=== PATIENT | female | born 1990 | race Asian ===

== ENCOUNTER 2020-06-18 19:56 | Emergency (ER) | payer BC, SELFPAY ==
[~2020-06-18] VITALS: Ht 165.1 cm; Wt 59.0 kg
[2020-06-18 19:58] VITALS: Ht 165.1 cm; Wt 59.0 kg
[2020-06-18 21:36] VITALS: BP 105/70
== END 2020-06-18 21:36 | disposition home or self-care (01) ==
LOC: ED 19:56
DX: R50.9 Fever, unspecified (principal); R51 Headache; M79.10 Myalgia, unspecified site; Z20.828 Contact with and (suspected) exposure to other viral communicable diseases
CPT/HCPCS: Q0092; U0003-CS